=== PATIENT | female | born 1950 | race Caucasian/White ===

== ENCOUNTER 2016-11-20 11:04 | Emergency (ER) | payer MEDICARE ==
[~2016-11-20] VITALS: Ht 170.2 cm; Wt 66.2 kg
[~2016-11-20 11:04] MED LIST: ALPR1TAB3 PO; ATOR80TA41 PO; HYDR-3580 PO; LEVO125T3 PO; MULT-65 PO; OXYC1SOL5 PO; SERT100 PO; VITA10002 PO; WARF2.5T40 PO; WARF5TAB PO
[2016-11-20 11:08] VITALS: BP 126/69; PULSE 69; RESP 18; TEMP 98.1; O2SAT 95
[2016-11-20] MEDS ORDERED: JANT5TAB PO (11:22)
[2016-11-20] MEDS ORDERED: BENZ1CAP8 PO (11:22)
[2016-11-20] MEDS ORDERED: LEVO137T2 PO (11:22)
[2016-11-20] MEDS ORDERED: SERT-129 PO (11:22)
[2016-11-20] MEDS ORDERED: ATOR1TAB18 PO (11:22)
[2016-11-20] MEDS ORDERED: AZIT250T3 PO (11:22)
[2016-11-20] MEDS ORDERED: RESP: ALBUTEROL 2.5 MG/3 ML NEB (SCH) INH ONE (11:30)
[2016-11-20] MEDS ORDERED: predniSONE 20 MG TAB PO ONE (11:30)
--- NOTE | 2016-11-20 12:05 | PD ---
HPI Chief Complaint: ENT Complaint Time Seen by Provider: 12:02 Travel History International Travel<30 days: No Contact w/Intl Traveler<30days: No Traveled to known affect area: No History of Present Illness HPI 65-year-old female that presents to the ED for evaluation of cold-like symptoms since almost a week now. Per patient she was seen on Friday from urgent care and was diagnosed with strep throat and given a Z-Jorge as well as Tessalon Perles. Per patient she's been compliant with the medication she sometimes actually done with but she still doesn't feel any better. Per patient the cough is severe and cause a lot of chest discomfort with green mucus coming out. Per patient nothing seems to be apparently the cough. She denies any history of smoking. Denies any history of asthma. States having some shortness of breath with the cough. No abdominal pain. No headache. No neck pain. No fevers chills or sweats. Allergy to clindamycin, penicillin. PFSH Past Medical History Hx Anticoagulant Therapy: Yes (coumadin) Arthritis: Yes Asthma: No Atrial Fibrillation: Yes Autoimmune Disease: Yes (Fibromyalgia, polymyalgia rheumatica) Blood Disorders: No Anxiety: Yes Depression: No Heart Rhythm Problems: Yes (HX ) Cancer: No Cardiovascular Problems: Yes (PACEMAKER) High Cholesterol: Yes Chemotherapy: No Chest Pain: No Congestive Heart Failure: No COPD: No Cerebrovascular Accident: Yes Diabetes: No Diminished Hearing: No Endocrine: Yes Fibromyalgia: Yes Gastrointestinal Disorders: Yes GERD: Yes (HX) Glaucoma: No Genitourinary: Yes (KIDNEY STONES) Headaches: Yes Hepatitis: No Hiatal Hernia: Yes (hx--repair) Heparin Induced Thrombocytopen: No Hypertension: No Immune Disorder: Yes Implanted Vascular Access Dvce: Yes (PAIN PUMP) Kidney Stones: Yes Musculoskeletal: Yes Neurologic: Yes (r facial droop from stroke, r leg numb and weakness, foot drop , ) Psychiatric: Yes Reproductive: Yes Respiratory: No Integumentary: No Immunizations Current: Yes Migraines: No Myocardial Infarction: No Radiation Therapy: No Renal Failure: No Seizures: No Sickle Cell Disease: No Sleep Apnea: No Thyroid Disease: Yes (HYPO) Ulcer: No PNEUMOCCOCAL Vaccine (Year): 1 ?: Not Menopausal: Yes : 3 Para: 3 Past Surgical History Abdominal Surgery: Yes (umbilical hernia repair) AICD: Yes (Paruditronic) Appendectomy: No Arteriovenous Shunt: No Body Medical Devices: DILAUDID PAIN PUMP, METAL NECK ,LUMBAR AREAS Cardiac Surgery: Yes (pacemaker) Cholecystectomy: No Ear Surgery: No Endocrine Surgery: Yes (thyroidectomy) Eye Surgery: Yes (Lasik OU) Genitourinary Surgery: No Gynecologic Surgery: Yes (HYTERECTOMY) Hysterectomy: Yes Insulin Pump: No Joint Replacement: Yes (Lt. 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 DR BURNS 03/07/14 LRS, 11/20/16) Adhesives (Verified Adverse Reaction, Intermediate, SKIN TEARS, 11/20/16) Monosodium Glutamate (Verified Adverse Reaction, Intermediate, HEADACHES, 11/20/16) Reported Meds & Prescriptions Reported Meds & Active Scripts Active Reported Azithromycin 250 Mg Tab 250 Mg PO DIRECTED Take 2 tabs (500 mg) on day 1 then 1 tab daily x 4 days. Benzonatate 100 Mg Cap 100 Mg PO TID PRN Atorvastatin (Atorvastatin Calcium) 80 Mg Tab 80 Mg PO HS Jantoven (Warfarin) 5 Mg Tab 5 Mg PO DAILY Levothyroxine (Levothyroxine Sodium) 137 Mcg Tab 137 Mcg PO DAILY Sertraline (Sertraline HCl) 100 Mg Tab 100 Mg PO DAILY Review of Systems Except as stated in HPI: all other systems reviewed are Neg Physical Exam Narrative GENERAL: Well-nourished, well-developed patient in no apparent distress. SKIN: Warm and dry. HEAD: Atraumatic. Normocephalic. EYES: Pupils equal and round reactive to light and accommodation. No scleral icterus. No injection or drainage. ENT: No nasal bleeding or discharge. Mucous membranes pink and moist. TMs are clear with no sign of infection or perforation. No mastoid tenderness. Ear canals are intact bilaterally. No lymphadenopathy. Nostril mucosa is red and moist with clear mucus noted. No sinus tenderness to palpation noted. Tonsils are not enlarged or swollen. No ulvua Deviation. Tongue is midline. NECK: Trachea midline. No JVD. No meningeal signs noted CARDIOVASCULAR: Regular rate and rhythm. RESPIRATORY: No accessory muscle use. Rales heard in all lung gagnon.. Breath sounds equal bilaterally. Data Data Last Documented VS Vital Signs Date Time Temp Pulse Resp B/P Pulse Ox O2 Delivery O2 Flow Rate FiO2 11/20/16 11:08 98.1 69 18 126/69 95 Orders Chest, Single Ap (11/20/16 11:30) Prednisone (Deltasone) (11/20/16 11:30) Albuterol Neb (Albuterol Neb) (11/20/16 11:30) [facility] Medical Decision Making Medical Screen Exam Complete: Yes Emergency Medical Condition: Yes Medical Record Reviewed: Yes Interpretation(s) CXR negative for acute disease Differential Diagnosis Bronchitis versus reactive airway disease versus pneumonia URI versus otitis media versus otitis externa Narrative Course 65-year-old female that presents to the ED for evaluation of cold-like symptoms. Patient was properly examined and was found to have signs and symptoms consistent appears to be at this time bronchitis. Chest x-ray and albuterol as well as prednisone were given. Chest x-ray showed possible pneumonia. Patient was reassured. From history and physical this is likely bronchitis. Patient will be treated with albuterol inhaler, given prescription for Cipro and prednisone. Told to follow up closely with PCP. See ED worsening symptoms. Patient was told that symptoms can last a couple of weeks before she feels better. Take OTC meds as needed. Diagnosis Primary Impression: Bronchitis Patient Instructions: General Instructions Additional Instructions: Motrin and Tylenol for pain and fever. You can use [id number] antihistamine as well as well as Mucinex as needed for runny nose and congestion. Cough drops for cough as needed. Drink plenty of fluids. Follow-up with PCP. See ED for worsening symptoms. Med/Other Pt SpecificInfo: Prescription(s) given Disposition: 01 DISCHARGE HOME Condition: Stable Lul Fry Nov 20, 2016 12:05
[2016-11-20] MEDS ORDERED: ALBUAER3 INH (12:07)
[2016-11-20] MEDS ORDERED: PRED20 PO (12:07)
[2016-11-20] MEDS ORDERED: CIPR-9 PO (12:07)
--- NOTE | 2016-11-20 12:32 | RADHPO ---
EXAM DATE/TIME: 11/20/2016 12:00 [facility] COMPARISON: CHEST SINGLE AP, January 19, 2016, 23:51. INDICATIONS: Cough, short of breath. MEDICAL HISTORY: None. SURGICAL HISTORY: Pacemaker. ENCOUNTER: Initial ACUITY: 1 week PAIN SCORE: 0/10 LOCATION: Bilateral chest FINDINGS: Pacemaker is implanted in the right chest. Lungs are mildly hyperinflated but clear. There is no al veolar consolidation, pleural effusion or congestive failure. CONCLUSION: Pacer. Mild hyperinflation otherwise negative. Carlos Boogie MD FACR on November 20, 2016 at 12:25 Board Certified Radiologist. This report was verified electronically.
== END 2016-11-20 12:58 | disposition home or self-care (01) ==
LOC: PHEFT 11:04
DX: J40 Bronchitis, not specified as acute or chronic (principal); I48.91 Unspecified atrial fibrillation; E78.00 Pure hypercholesterolemia, unspecified; Z87.442 Personal history of urinary calculi; M79.7 Fibromyalgia; E03.9 Hypothyroidism, unspecified; Z79.01 Long term (current) use of anticoagulants; Z95.0 Presence of cardiac pacemaker
CPT/HCPCS: 71010; 94664; 99284; J7512; J7613

== ENCOUNTER 2016-12-28 18:41 | Emergency (ER) | payer MEDICARE ==
[~2016-12-28] VITALS: Ht 170.2 cm; Wt 66.0 kg
[~2016-12-28 18:41] MED LIST changes: +ALBUAER3 INH; -ALPR1TAB3 PO; +ATOR1TAB18 PO; -ATOR80TA41 PO; +AZIT250T3 PO; +BENZ1CAP8 PO; +CIPR-9 PO; -HYDR-3580 PO; +JANT5TAB PO; -LEVO125T3 PO; +LEVO137T2 PO; -MULT-65 PO; -OXYC1SOL5 PO; +PRED20 PO; +SERT-129 PO; -SERT100 PO; -VITA10002 PO; -WARF2.5T40 PO; -WARF5TAB PO
[2016-12-28 18:50] VITALS: BP 126/74; PULSE 80; RESP 16; TEMP 99.8; O2SAT 94
[2016-12-28] MEDS ORDERED: HYDR-3580 PO (19:07)
[2016-12-28] MEDS ORDERED: ALPR1TAB3 PO (19:07)
[2016-12-28] MEDS ORDERED: VITA10002 PO (19:07)
[2016-12-28] MEDS ORDERED: ZINC50TA PO (19:07)
[2016-12-28] MEDS ORDERED: MULT1TAB84 PO (19:07)
[2016-12-28 19:20] VITALS: PULSE 75; O2SAT 96
[2016-12-28] MEDS ORDERED: SODIUM CHLORIDE 0.9% FLUSH 5 ML FLUSH IVF PRN (19:45)
[2016-12-28 19:50] LABS: AUTOMATED NEUTROPHIL # 2.9 TH/MM3 (1.8-7.7); BASOPHIL # 0.1 TH/MM3 (0-0.2); BASOPHIL % 1.4 % (0.0-2.0); EOSINOPHIL % 0.7 % (0.0-4.0); HEMO FLAGS DIFF FINAL; LYMPH % 28.7 % (9.0-44.0); LYMPHOCYTE # 1.4 TH/MM3 (1.0-4.8); MEAN CELL VOLUME 88.1 FL (80.0-100.0); MEAN CORPUSCULAR HEMOGLOBIN 29.4 PG (27.0-34.0); MEAN CORPUSCULAR HGB CONC 33.3 % (32.0-36.0); MONO % 11.3 % (0.0-8.0); NEUT % 57.9 % (16.0-70.0); PLATELET COUNT 193 TH/MM3 (150-450); RED BLOOD COUNT 4.43 MIL/MM3 (4.00-5.30); RED CELL DISTRIBUTION WIDTH 12.2 % (11.6-17.2)
[2016-12-28 19:56] LABS: CHLORIDE 107 MEQ/L (98-107); POTASSIUM 3.4 MEQ/L (3.5-5.1); SODIUM (NA) 143 MEQ/L (136-145)
[2016-12-28 20:00] LABS: ANION GAP 8 MEQ/L (5-15); BICARBONATE 27.7 MEQ/L (21.0-32.0); BLOOD UREA NITROGEN 6 MG/DL (7-18); MAGNESIUM 2.2 MG/DL (1.5-2.5)
[2016-12-28 20:01] LABS: INTERNATIONAL NORMALIZED RATIO 3.6 RATIO; PROTHROMBIN TIME - PATIENT 42.1 SEC (9.8-11.6)
[2016-12-28 20:03] LABS: ALT (GPT) 33 U/L (10-53); AST (GOT) 35 U/L (15-37); GLOMERULAR FILTRATION RATE 98 ML/MIN (>89)
[2016-12-28 20:05] LABS: TOTAL BILIRUBIN ADULT 0.5 MG/DL (0.2-1.0)
[2016-12-28 20:05] LABS: BLOOD, URINE NEG (NEG); GLUCOSE,URINE NEG (NEG); KETONE, URINE NEG (NEG); NITRITE,URINE NEG (NEG)
[2016-12-28 20:06] LABS: ALKALINE PHOSPHATASE 101 U/L (45-117)
[2016-12-28 20:07] LABS: URINE COLOR YELLOW (YELLW/STRAW)
[2016-12-28 20:10] LABS: COMMENT (UR) CULT NOT INDICATED; COMMENT2 (UR) MUCOUS PRESENT; CULTURE IF INDICATED CULT NOT INDICATED; RBC, URINE 0-2 /hpf (0-3); SQUAMOUS EPITHELIAL CELL URINE 0-5 /hpf (0-5); WBC, URINE 0-2 /hpf (0-5)
--- NOTE | 2016-12-28 20:16 | RADHPO ---
EXAM DATE/TIME: 12/28/2016 19:51 [facility] COMPARISON: No previous studies available for comparison. INDICATIONS : Fever and cough for two days. MEDICAL HISTORY : None. SURGICAL HISTORY : Pacemaker. ENCOUNTER: Initial ACUITY: 2 days PAIN SCORE: 0/10 LOCATION: Bilateral chest FINDINGS: Heart is enlarged. Minimal basilar atelectasis. No effusion or pneumothorax. Pacer leads overlie righ t atrium and right ventricle. CONCLUSION: 1. Cardiomegaly. Minimal basilar atelectasis. No effusion or pneumothorax. Payam Quezada MD on December 28, 2016 at 20:10 Board Certified Radiologist. This report was verified electronically.
[2016-12-28 20:45] VITALS: BP 133/72; PULSE 61; RESP 18; TEMP 99.1; O2SAT 97
--- NOTE | 2016-12-28 21:07 | RADHPO ---
EXAM DATE/TIME: 12/28/2016 20:06 [facility] COMPARISON: CT BRAIN W/O CONTRAST, January 20, 2016, 11:12. INDICATIONS : Headache. RADIATION DOSE: 62.67 CTDIvol (mGy) MEDICAL HISTORY : Stroke. Hypertension. SURGICAL HISTORY : None. ENCOUNTER: Initial ACUITY: 1 day PAIN SCALE: 7/10 LOCATION: cranial TECHNIQUE: Multiple contiguous axial images were obtained of the head. Using automated exposure control and adj ustment of the mA and/or kV according to patient size, radiation dose was kept as low as reasonably a chievable to obtain optimal diagnostic quality images. FINDINGS: CEREBRUM: The ventricles are normal for age. No evidence of midline shift, mass lesion, hemorrhage or acute in farction. No extra-axial fluid collections are seen. POSTERIOR FOSSA: The cerebellum and brainstem are intact. The 4th ventricle is midline. The cerebellopontine angle i s unremarkable. EXTRACRANIAL: The visualized portion of the orbits is intact. SKULL: The calvaria is intact. No evidence of skull fracture. CONCLUSION: Normal examination for a patient of this age. No significant change has occurred. Payam Quezada MD on December 28, 2016 at 21:03 Board Certified Radiologist. This report was verified electronically.
[2016-12-28 22:35] VITALS: BP 130/72; PULSE 68; RESP 18; O2SAT 97
[2016-12-28] MEDS ORDERED: ALBU6.7H INH (22:35)
[2016-12-28] MEDS ORDERED: CEFT500T3 PO (22:35)
--- NOTE | 2016-12-28 22:36 | PD ---
HPI Chief Complaint: Cold / Flu Symptoms Time Seen by Provider: 19:33 Travel History International Travel<30 days: No Contact w/Intl Traveler<30days: No Traveled to known affect area: No History of Present Illness HPI 66-year-old female presents to the emergency department by private transportation for complaint of myalgias arthralgias headache nasal/sinus congestion sore throat cough and not feeling well for several days. Patient states she is exposed to family members with children that have recently been ill. Patient denies having the flu. Patient reports flu vaccine current. Patient has extensive past medical history that includes atrial fibrillation, warfarin therapy, CVA, kidney stones, pacemaker, anxiety depression, fibromyalgia, polymyalgia rheumatica, high cholesterol, hypertension, headaches , GERD, hypothyroidism, back surgery and pain pump. Patient does not report any neck stiffness or back pain. No dysuria frequency or urgency. Nausea without vomiting or diarrhea. No skin rash or joint pain or swelling. No recent fall or injury. Headache is not sudden onset thunderclap or worst ever. Patient does have history of headaches. Patient has history of recurrent sinus infections and rhinosinusitis. Patient is followed by a nose and throat specialist. Patient has finished a course of azithromycin and a 18 day course of Bactrim. No yellow green sinus drainage. Cough nonproductive of yellow- green sputum. No hemoptysis. Patient is unable to identify exacerbating or alleviating factors. Patient rates overall discomfort/pain 10 over 10 in intensity. PFSH Past Medical History Narrative Medical atrial fibrillation, warfarin therapy, CVA, kidney stones, pacemaker, anxiety depression, fibromyalgia, polymyalgia rheumatica, high cholesterol, hypertension , headaches, GERD, hypothyroidism, back surgery, pain pump; no tobacco use; nursing notes reviewed Hx Anticoagulant Therapy: Yes (coumadin) Arthritis: Yes Asthma: No Atrial Fibrillation: Yes Autoimmune Disease: Yes (Fibromyalgia, polymyalgia rheumatica) Blood Disorders: No Anxiety: Yes Depression: Yes Heart Rhythm Problems: Yes (HX ) Cancer: No Cardiac Catheterization: Yes Cardiovascular Problems: Yes (PACEMAKER) High Cholesterol: Yes Chemotherapy: No Chest Pain: No Congestive Heart Failure: No COPD: No Cerebrovascular Accident: Yes Diabetes: No Diminished Hearing: No Endocrine: Yes Fibromyalgia: Yes Gastrointestinal Disorders: Yes GERD: Yes (HX) Glaucoma: No Genitourinary: Yes (KIDNEY STONES) Headaches: Yes Hepatitis: No Hiatal Hernia: Yes (hx--repair) Heparin Induced Thrombocytopen: No Hypertension: No Immune Disorder: Yes Implanted Vascular Access Dvce: Yes (PAIN PUMP) Kidney Stones: Yes Musculoskeletal: Yes Neurologic: Yes (r facial droop from stroke, r leg numb and weakness, foot drop , ) Psychiatric: Yes Reproductive: Yes Respiratory: No Integumentary: No Immunizations Current: Yes Migraines: No Myocardial Infarction: No Radiation Therapy: No Renal Failure: No Seizures: No Sickle Cell Disease: No Sleep Apnea: No Thyroid Disease: Yes (HYPO) Ulcer: No PNEUMOCCOCAL Vaccine (Year): 1 ?: Not Menopausal: Yes : 3 Para: 3 Past Surgical History Abdominal Surgery: Yes (umbilical hernia repair) AICD: Yes (medtronic (REMOVED)) Appendectomy: No Arteriovenous Shunt: No Body Medical Devices: DILAUDID PAIN PUMP, METAL NECK ,LUMBAR AREAS Cardiac Surgery: Yes (pacemaker) Cholecystectomy: No Ear Surgery: No Endocrine Surgery: Yes (thyroidectomy) Eye Surgery: Yes (Lasik OU) Genitourinary Surgery: No Gynecologic Surgery: Yes (HYTERECTOMY) Hysterectomy: Yes Insulin Pump: No Joint Replacement: Yes (Lt. 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 Proventil Hfa 6.7 GM Inh (Albuterol Sulfate) 90 Mcg/Act Aer 2 Puff INH Q4-6H PRN Proair Hfa 8.5 GM Inh (Albuterol Sulfate) 90 Mcg/Act Aer 2 Puff INH Q4-6H PRN 108 mcg/actuation Prednisone 20 Mg Tab 20 Mg PO BID Reported Zinc 50 Mg Tab 50 Mg PO DAILY Vitamin B-12 (Cyanocobalamin) 1,000 Mcg Tab 1,000 Mcg PO DAILY Multivitamin Adults (Multiple Vitamins W/ Minerals) 1 Tab 1 Tab PO DAILY Hydrocodone-Acetaminophen 7.5-325 mg Tab 1 Tab PO BID PRN Alprazolam 1 Mg Tab 1 Mg PO HS PRN Atorvastatin (Atorvastatin Calcium) 80 Mg Tab 80 Mg PO HS Jantoven (Warfarin) 5 Mg Tab 5 Mg PO HS Levothyroxine (Levothyroxine Sodium) 137 Mcg Tab 137 Mcg PO DAILY Sertraline (Sertraline HCl) 100 Mg Tab 100 Mg PO DAILY Review of Systems Except as stated in HPI: all other systems reviewed are Neg General / Constitutional: Positive: Fever, Chills HENT: Positive: Headaches, Sore Throat, Congestion Cardiovascular: No: Chest Pain or Discomfort Respiratory: Positive: Cough, No: Shortness of Breath, Wheezing Gastrointestinal: Positive: Nausea, No: Vomiting, Abdominal Pain Genitourinary: No: Dysuria Musculoskeletal: Positive: Myalgias, Arthralgias Skin: No Rash Neurologic: No: Weakness Psychiatric: No: Anxiety Endocrine: No: Heat Intolerance Hematologic/Lymphatic: No: Easy Bruising Physical Exam Narrative GENERAL: Well-developed well-nourished female in no acute distress no respiratory distress SKIN: Warm and dry. HEAD: Atraumatic. Normocephalic. EYES: Pupils equal and round. No scleral icterus. No injection or drainage. Extraocular muscles intact. ENT: No nasal bleeding or discharge. Mucous membranes pink and moist. Airway is patent. Tympanic membranes no redness dullness loss of landmarks or perforation. NECK: Trachea midline. No JVD. Supple no meningismus no nuchal rigidity. CARDIOVASCULAR: Regular rate and rhythm. RESPIRATORY: No accessory muscle use. Clear to auscultation. Breath sounds equal bilaterally. GASTROINTESTINAL: Abdomen soft, non-tender, nondistended. Hepatic and splenic margins not palpable. MUSCULOSKELETAL: Extremities without clubbing, cyanosis, or edema. No obvious deformities. NEUROLOGICAL: Awake and alert. No obvious cranial nerve deficits. Motor grossly within normal limits. Five out of 5 muscle strength in the arms and legs. Normal speech. PSYCHIATRIC: Appropriate mood and affect; insight and judgment normal. Data Data Last Documented VS Vital Signs Date Time Temp Pulse Resp B/P Pulse Ox O2 Delivery O2 Flow Rate FiO2 12/28/16 22:35 68 18 130/72 97 Room Air 12/28/16 20:45 99.1 Orders Electrocardiogram (12/28/16 19:33) Complete Blood Count With Diff (12/28/16 19:33) Comprehensive Metabolic Panel (12/28/16 19:33) Influenzae A/B Antigen (12/28/16 19:33) Chest, Single Ap (12/28/16 19:33) Ecg Monitoring (12/28/16 19:33) Iv Access Insert/Monitor (12/28/16 19:33) Oximetry (12/28/16 19:33) Sodium Chloride 0.9% Flush (Ns Flush) (12/28/16 19:45) Ct Brain W/O Iv Contrast(Rout) (12/28/16 ) Prothrombin Time / Inr (Pt) (12/28/16 19:33) Lactic Acid (12/28/16 19:33) Magnesium (Mg) (12/28/16 19:33) Urinalysis - C+S If Indicated (12/28/16 19:33) Troponin I (12/28/16 19:25) Cefuroxime (Ceftin) (12/28/16 22:45) Labs Laboratory Tests Test 12/28/16 12/28/16 19:25 19:50 White Blood Count 5.0 TH/MM3 Red Blood Count 4.43 MIL/MM3 Hemoglobin 13.0 GM/DL Hematocrit 39.0 % Mean Corpuscular Volume 88.1 FL Mean Corpuscular Hemoglobin 29.4 PG Mean Corpuscular Hemoglobin 33.3 % Concent Red Cell Distribution Width 12.2 % Platelet Count 193 TH/MM3 Mean Platelet Volume 8.3 FL Neutrophils (%) (Auto) 57.9 % Lymphocytes (%) (Auto) 28.7 % Monocytes (%) (Auto) 11.3 % Eosinophils (%) (Auto) 0.7 % Basophils (%) (Auto) 1.4 % Neutrophils # (Auto) 2.9 TH/MM3 Lymphocytes # (Auto) 1.4 TH/MM3 Monocytes # (Auto) 0.6 TH/MM3 Eosinophils # (Auto) 0.0 TH/MM3 Basophils # (Auto) 0.1 TH/MM3 CBC Comment DIFF FINAL Differential Comment Prothrombin Time 42.1 SEC Prothromb Time International 3.6 RATIO Ratio Sodium Level 143 MEQ/L Potassium Level 3.4 MEQ/L Chloride Level 107 MEQ/L Carbon Dioxide Level 27.7 MEQ/L Anion Gap 8 MEQ/L Blood Urea Nitrogen 6 MG/DL Creatinine 0.61 MG/DL Estimat Glomerular Filtration 98 ML/MIN Rate Random Glucose 87 MG/DL Lactic Acid Level 0.7 mmol/L Calcium Level 8.1 MG/DL Magnesium Level 2.2 MG/DL Total Bilirubin 0.5 MG/DL Aspartate Amino Transf 35 U/L (AST/SGOT) Alanine Aminotransferase 33 U/L (ALT/SGPT) Alkaline Phosphatase 101 U/L Troponin I LESS THAN 0.02 NG/ML Total Protein 6.8 GM/DL Albumin 3.5 GM/DL Urine Color YELLOW Urine Turbidity CLEAR Urine pH 6.0 Urine Specific [place] 1.017 Urine Protein NEG mg/dL Urine Glucose (UA) NEG mg/dL Urine Ketones NEG mg/dL Urine Occult Blood NEG Urine Nitrite NEG Urine Bilirubin NEG Urine Leukocyte Esterase NEG Urine RBC 0-2 /hpf Urine WBC 0-2 /hpf Urine Squamous Epithelial 0-5 /hpf Cells Urine Bacteria NONE /hpf Microscopic Urinalysis Comment CULT NOT INDICATED MDM Medical Decision Making Medical Screen Exam Complete: Yes Emergency Medical Condition: Yes Medical Record Reviewed: Yes Interpretation(s) Lactic acid: 0.7, not elevated Last Impressions Chest X-Ray 12/28/16 1933 Signed Impressions: Service Date/Time: Wednesday, December 28, 2016 19:51 - CONCLUSION: 1. Cardiomegaly. Minimal basilar atelectasis. No effusion or pneumothorax. Payam Quezada MD Head CT 12/28/16 0000 Signed Impressions: Service Date/Time: Wednesday, December 28, 2016 20:06 - CONCLUSION: Normal examination for a patient of this age. No significant change has occurred. Payam Quezada MD Vital Signs Date Time Temp Pulse Resp B/P Pulse Ox O2 Delivery O2 Flow Rate FiO2 12/28/16 20:45 99.1 61 18 133/72 97 Room Air 12/28/16 19:20 18 96 Room Air 12/28/16 19:20 75 96 Room Air 12/28/16 18:50 99.8 80 16 126/74 94 CBC & BMP Diagram 12/28/16 19:25 Influenza A/B antigen: Negative Differential Diagnosis Viral syndrome, influenza, sinusitis, pharyngitis, bronchitis, pneumonia, UTI Narrative Course IV access obtained specimens collected and sent for resulting imaging studies ordered Flu test negative Chest x-ray no lobar infiltrate or pneumonia CT brain noncontrast reveals no acute abnormality Lab values grossly normal range Patient feeling well after labs resulted and resting in the emergency department given first dose of oral antibiotic in the emergency department Patient stable for outpatient management Diagnosis Primary Impression: Acute sinusitis Additional Impression: Bronchitis Referrals: Primary Care Physician call for appointment Patient Instructions: General Instructions Additional Instructions: Take acetaminophen/Tylenol every 4 hours as needed for fever 100.4F or greater or for minor pain Complete course of antibiotic as prescribed Follow-up with your primary care provider call office in a.m. to schedule follow -up appointment Return to the emergency department for any concerns or change in condition May use as tolerated for up to 2-3 days Afrin nasal decongestant spray 1 spray per nostril up to twice a day for nasal congestion avoid overuse or for use longer than 3 days May use [id number] Flonase or Nasacort steroid spray per package directions Increase fluid hydration Med/Other Pt SpecificInfo: Prescription(s) given Scripts Azithromycin (Zithromax Z-Jorge)250 Mg [id number] Mg PO DIRECTED #1 DSPK Ref 0 500 MG (2 tabs) day 1, then 1 tab days 2-5. Prov:Sandra George MD 12/28/16 Albuterol 6.7 GM Inh (Proventil Hfa 6.7 GM Inh)90 Mcg/Act Aer2 Puff INH Q4-6H PRN (SHORTNESS OF BREATH) #1 INHALER Ref 0 Prov:Sandra George MD 12/28/16 Disposition: 01 DISCHARGE HOME Condition: Stable Sandra George MD Dec 28, 2016 22:36
[2016-12-28] MEDS ORDERED: CEFUROXIME AXETIL 500 MG TAB PO ONE (22:45)
[2016-12-28] MEDS ORDERED: ZITHTAB PO (22:51)
--- NOTE | 2016-12-29 14:39 | EKG ---
Date Performed: 12/28/2016 Time Performed: 19:42:02 PTAGE: 66 years EKG: Sinus rhythm vs possible atrial pacing Leftward axis Lateral ST changes are nonspecific Compared to previous trac ing, there are possible atrial pacing spikes seen. Though Clinical correlation is recommended. Likely no significant change from prior Abnormal ECG PREVIOUS TRACING : 01/20/2016 00.05 DOCTOR: Demetrius Julian Interpretating Date/Time 12/29/2016 14:38:04
== END 2016-12-28 23:00 | disposition home or self-care (01) ==
LOC: PHED 18:41
DX: J01.90 Acute sinusitis, unspecified (principal); J40 Bronchitis, not specified as acute or chronic; R94.31 Abnormal electrocardiogram [ECG] [EKG]; M25.50 Pain in unspecified joint; I48.91 Unspecified atrial fibrillation; M79.7 Fibromyalgia; M35.3 Polymyalgia rheumatica; I10 Essential (primary) hypertension; E78.00 Pure hypercholesterolemia, unspecified; Z79.01 Long term (current) use of anticoagulants; Z86.73 Personal history of transient ischemic attack (TIA), and cerebral infarction without residual deficits; Z87.442 Personal history of urinary calculi; Z95.0 Presence of cardiac pacemaker; Z86.59 Personal history of other mental and behavioral disorders; Z87.19 Personal history of other diseases of the digestive system
CPT/HCPCS: 70450; 71010; 80053; 81001; 83605; 83735; 84484; 85025; 85610; 87804; 93005

== ENCOUNTER 2017-01-04 09:27 | Emergency (ER) | payer MEDICARE ==
[~2017-01-04] VITALS: Ht 167.6 cm; Wt 66.0 kg
[~2017-01-04 09:27] MED LIST changes: +ALBU6.7H INH; +ALPR1TAB3 PO; -AZIT250T3 PO; -BENZ1CAP8 PO; -CIPR-9 PO; +HYDR-3580 PO; +MULT1TAB84 PO; +VITA10002 PO; +ZINC50TA PO; +ZITHTAB PO
[2017-01-04 09:30] VITALS: BP 141/75; PULSE 79; RESP 18; TEMP 97.7; O2SAT 94; O2SAT 98
--- NOTE | 2017-01-04 09:36 | PD ---
HPI Chief Complaint: Cold / Flu Symptoms Time Seen by Provider: 09:32 Travel History International Travel<30 days: No Contact w/Intl Traveler<30days: No History of Present Illness HPI 66-year-old female states she has been struggling with a intermittent productive cough and nasal congestion over the past 2 months. She denies any fever or other significant complaints other than sinus pressure. She states Dr. Orourke her ENT physician put her on a stronger antibiotic for a bacterial infection for 14 days and scheduled follow-up for her at the end of this month on the . She states that she went to [facility] and was given a Z-Jorge and when she stops that she felt like her symptoms came back. She states she is sick of being sick with this cough and congestion and wanted to get checked out again. She states Dr. Barboza manages her Coumadin and her last INR was yesterday at 2.1 so they are going to check it again on Friday as they were concerned that the antibiotics she was on May alter it. She states that they did not have her adjust her medication. She states that Dr. Ayala is her primary care physician but she is only seeing them a couple times after switching insurances. She states that she has no other complaints. PFSH Past Medical History Narrative Medical atrial fibrillation on warfarin, CVA, kidney stones, anxiety depression, fibromyalgia, polymyalgia rheumatica, high cholesterol, hypertension, headaches , GERD, hypothyroidism Hx Anticoagulant Therapy: Yes (coumadin) Arthritis: Yes Asthma: No Atrial Fibrillation: Yes Autoimmune Disease: Yes (Fibromyalgia, polymyalgia rheumatica) Blood Disorders: No Anxiety: Yes Depression: Yes Heart Rhythm Problems: Yes (HX ) Cancer: No Cardiac Catheterization: Yes Cardiovascular Problems: Yes (PACEMAKER) High Cholesterol: Yes Chemotherapy: No Chest Pain: No Congestive Heart Failure: No COPD: No Cerebrovascular Accident: Yes Diabetes: No Diminished Hearing: No Endocrine: Yes Fibromyalgia: Yes Gastrointestinal Disorders: Yes GERD: Yes (HX) Glaucoma: No Genitourinary: Yes (KIDNEY STONES) Headaches: Yes Hepatitis: No Hiatal Hernia: Yes (hx--repair) Heparin Induced Thrombocytopen: No Hypertension: No Immune Disorder: Yes Implanted Vascular Access Dvce: Yes (PAIN PUMP) Kidney Stones: Yes Musculoskeletal: Yes Neurologic: Yes (r facial droop from stroke, r leg numb and weakness, foot drop , ) Psychiatric: Yes Reproductive: Yes Respiratory: No Integumentary: No Immunizations Current: Yes Migraines: No Myocardial Infarction: No Radiation Therapy: No Renal Failure: No Seizures: No Sickle Cell Disease: No Sleep Apnea: No Thyroid Disease: Yes (HYPO) Ulcer: No PNEUMOCCOCAL Vaccine (Year): 1 Menopausal: Yes : 3 Para: 3 Past Surgical History Narrative Surgical reviewed Abdominal Surgery: Yes (umbilical hernia repair) AICD: Yes (medtronic (REMOVED)) Appendectomy: No Arteriovenous Shunt: No Body Medical Devices: DILAUDID PAIN PUMP, METAL NECK ,LUMBAR AREAS Cholecystectomy: No Ear Surgery: No Endocrine Surgery: Yes (thyroidectomy) Eye Surgery: Yes (Lasik OU) Genitourinary Surgery: No Hysterectomy: Yes Insulin Pump: No Joint Replacement: Yes (Lt. 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 Zithromax Z-Jorge (Azithromycin) 250 Mg Dspk 250 Mg PO DIRECTED 500 MG (2 tabs) day 1, then 1 tab days 2-5. Proventil Hfa 6.7 GM Inh (Albuterol Sulfate) 90 Mcg/Act Aer 2 Puff INH Q4-6H PRN Proair Hfa 8.5 GM Inh (Albuterol Sulfate) 90 Mcg/Act Aer 2 Puff INH Q4-6H PRN 108 mcg/actuation Prednisone 20 Mg Tab 20 Mg PO BID Reported Zinc 50 Mg Tab 50 Mg PO DAILY Vitamin B-12 (Cyanocobalamin) 1,000 Mcg Tab 1,000 Mcg PO DAILY Multivitamin Adults (Multiple Vitamins W/ Minerals) 1 Tab 1 Tab PO DAILY Hydrocodone-Acetaminophen 7.5-325 mg Tab 1 Tab PO BID PRN Alprazolam 1 Mg Tab 1 Mg PO HS PRN Atorvastatin (Atorvastatin Calcium) 80 Mg Tab 80 Mg PO HS Jantoven (Warfarin) 5 Mg Tab 5 Mg PO HS Levothyroxine (Levothyroxine Sodium) 137 Mcg Tab 137 Mcg PO DAILY Sertraline (Sertraline HCl) 100 Mg Tab 100 Mg PO DAILY Review of Systems Except as stated in HPI: all other systems reviewed are Neg Physical Exam Narrative GENERAL: Well-nourished, well-developed patient. Well-appearing SKIN: Warm and dry. HEAD: Normocephalic and atraumatic. EYES: No injection or drainage. Pupils equal ENT: No nasal drainage noted. Bilateral TMs clear, posterior oropharynx without exudate or erythema NECK: Supple, trachea midline. No meningeal signs CARDIOVASCULAR: Regular rate and rhythm RESPIRATORY: Good aeration with faint expiratory wheezing bilaterally. No accessory muscle use. EXTREMITIES: No edema. NEUROLOGICAL: Awake and alert. Motor and sensory grossly within normal limits. Normal speech. Data Data Last Documented VS Vital Signs Date Time Temp Pulse Resp B/P Pulse Ox O2 Delivery O2 Flow Rate FiO2 01/04/17 10:45 97 21 01/04/17 09:30 20 Room Air 01/04/17 09:30 97.7 79 141/75 Orders Influenzae A/B Antigen (01/04/17 09:44) Chest, Pa & Lat (01/04/17 ) Ct Brain W/O Iv Contrast(Rout) (01/04/17 ) Ecg Monitoring (01/04/17 09:44) Oximetry (01/04/17 09:44) Albuterol Neb (Albuterol Neb) (01/04/17 09:45) MDM Medical Decision Making Medical Screen Exam Complete: Yes Emergency Medical Condition: Yes Medical Record Reviewed: Yes ([facility] confiremd, recent er visits for bronchitis and sinusitis noted, most recent on December 28 with discharge with azithromycin and albuterol) Interpretation(s) Last [address] 01/04/17 0000 Signed Impressions: Service Date/Time: Wednesday, January 04, 2017 10:01 - CONCLUSION: Normal noncontrast CT appearance of the brain. Maxillary sinus disease. Kris Fraser MD Chest X-Ray 01/04/17 0000 Signed Impressions: Service Date/Time: Wednesday, January 04, 2017 10:05 - CONCLUSION: No evidence of acute cardiopulmonary disease. Kris Fraser MD Influenza is negative Differential Diagnosis Sinusitis, pharyngitis, pneumonia, URI, seasonal allergies Narrative Course Will check influenza, chest x-ray, CT brain and dose with albuterol and reevaluate. Patient agrees to testing given recent blood work yesterday. CT brain without bleed, mild sinus disease, influenza is negative, chest x-ray is negative, patient feels better after albuterol, patient's wheezing has cleared. 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 Patient knows that follow up is incumbent on them and to return to the emergency room immediately if new or worsening symptoms develop. Patient given strict return precautions, vitals reviewed and are normal, agrees to further workup as an outpatient. Physician Communication Physician Communication dr barboza states take 5mg tonight and alternate 2.5 for one week and then will recheck, ok with any antibiotic Diagnosis Primary Impression: Bronchitis Patient Instructions: General Instructions Additional Instructions: follow with primary friday, return as needed, tylenol as needed, take 5 mg of Coumadin tonight and then alternate 2-1/2 mg and 5 mg for the next week with repeat INR through Dr. Barboza Med/Other Pt SpecificInfo: Prescription(s) given Scripts Azithromycin (Zithromax Z-Jorge)250 Mg [id number] Mg PO DIRECTED #1 DSPK 500 MG (2 tabs) day 1, then 1 tab days 2-5. Prov:Ashanti Luong MD 01/04/17 Disposition: DISCHARGE HOME Condition: Stable Ashanti Luong MD Jan 04, 2017 09:36
[2017-01-04] MEDS ORDERED: RESP: ALBUTEROL 2.5 MG/3 ML NEB (SCH) INH ONE (09:45)
--- NOTE | 2017-01-04 10:26 | RADRPT ---
EXAM DATE/TIME: 01/04/2017 10:01 [facility] COMPARISON: CT BRAIN W/O CONTRAST, December 28, 2016, 20:06. INDICATIONS : Cephalgia. RADIATION DOSE: 34.46 CTDIvol (mGy) MEDICAL HISTORY : Deep venous thrombosis. Cardiovascular disease SURGICAL HISTORY : Pacemaker. Spine. ENCOUNTER: Initial ACUITY: 1 day PAIN SCALE: 5/10 LOCATION: cranial TECHNIQUE: Multiple contiguous axial images were obtained of the head. Using automated exposure control and adj ustment of the mA and/or kV according to patient size, radiation dose was kept as low as reasonably a chievable to obtain optimal diagnostic quality images. FINDINGS: CEREBRUM: The ventricles are normal for age. No evidence of midline shift, mass lesion, hemorrhage or acute in farction. No extra-axial fluid collections are seen. POSTERIOR FOSSA: The cerebellum and brainstem are intact. The 4th ventricle is midline. The cerebellopontine angle i s unremarkable. EXTRACRANIAL: Small fluid levels are seen in both maxillary air cells. SKULL: The calvaria is intact. No evidence of skull fracture. CONCLUSION: Normal noncontrast CT appearance of the brain. Maxillary sinus disease. Kris Fraser MD on January 04, 2017 at 10:24 Board Certified Radiologist. This report was verified electronically.
--- NOTE | 2017-01-04 10:27 | RADRPT ---
EXAM DATE/TIME: 01/04/2017 10:05 [facility] COMPARISON: No previous studies available for comparison. INDICATIONS : Cough MEDICAL HISTORY : Hypertension. Stroke. SURGICAL HISTORY : Pacemaker. ENCOUNTER: Initial ACUITY: 2 months PAIN SCORE: 0/10 LOCATION: Bilateral chest FINDINGS: No infiltrate, effusion or pneumothorax. Heart size stable, within normal limits. Mildly tortuous tho racic aorta again noted. There is a right subclavian transvenous cardiac pacer with 2 leads again not ed. CONCLUSION: No evidence of acute cardiopulmonary disease. Kris Fraser MD on January 04, 2017 at 10:25 Board Certified Radiologist. This report was verified electronically.
[2017-01-04 10:45] VITALS: O2SAT 97
[2017-01-04] MEDS ORDERED: ZITHTAB PO ×2 (11:11→11:13)
== END 2017-01-04 11:26 | disposition home or self-care (01) ==
LOC: NEPA 09:27
DX: J40 Bronchitis, not specified as acute or chronic (principal); M35.3 Polymyalgia rheumatica; M79.7 Fibromyalgia; K21.9 Gastro-esophageal reflux disease without esophagitis; I48.91 Unspecified atrial fibrillation; I10 Essential (primary) hypertension; E78.00 Pure hypercholesterolemia, unspecified; E03.9 Hypothyroidism, unspecified; E07.9 Disorder of thyroid, unspecified; Z79.01 Long term (current) use of anticoagulants; Z86.73 Personal history of transient ischemic attack (TIA), and cerebral infarction without residual deficits; Z87.442 Personal history of urinary calculi; Z95.0 Presence of cardiac pacemaker
CPT/HCPCS: 70450; 71020; 87804; 94664; 99284; J7613

== ENCOUNTER 2018-04-04 23:43 | Emergency (ER) | payer MEDICARE ==
[~2018-04-04] VITALS: Ht 170.2 cm; Wt 75.7 kg
[~2018-04-04 23:43] MED LIST changes: -ATOR1TAB18 PO; +ATOR80TA45 PO
[2018-04-04 23:48] VITALS: BP 143/63; PULSE 62; RESP 20; TEMP 98.8; O2SAT 98
[2018-04-05] MEDS ORDERED: MULTTAB67 PO (00:20)
[2018-04-05] MEDS ORDERED: WARF-18 PO (00:20)
[2018-04-05] MEDS ORDERED: HYDR-3583 PO (00:20)
[2018-04-05] MEDS ORDERED: WARF-23 PO (00:20)
[2018-04-05 00:59] LABS: BILIRUBIN, URINE NEG (NEG); BLOOD, URINE NEG (NEG); GLUCOSE,URINE NEG (NEG); KETONE, URINE NEG (NEG); NITRITE,URINE NEG (NEG); PH, URINE 5.5 (5.0-8.5); URINE COLOR YELLOW (YELLW/STRAW); URINE LEUKOCYTE ESTERASE TRACE (NEG)
[2018-04-05 01:01] LABS: SQUAMOUS EPITHELIAL CELL URINE 0-5 /hpf (0-5); WBC, URINE 0-2 /hpf (0-5)
--- NOTE | 2018-04-05 02:32 | RADRPT ---
EXAM DATE/TIME: 04/05/2018 00:51 [facility] COMPARISON: No previous studies available for comparison. INDICATIONS : Swelling. MEDICAL HISTORY : Hypertension. Stroke. SURGICAL HISTORY : Total knee replacement, left. Pacemaker. Lumbar fusion. Cervical fusion. ENCOUNTER: Initial ACUITY: 2 days PAIN SCORE: 0/10 LOCATION: Left ankle FINDINGS: Three view exam was performed of the right ankle. The bony structures are in normal alignment. No e vidence of fracture, dislocation. The ankle mortise is intact. No radiopaque foreign bodies are seen . Bony mineralization is normal. CONCLUSION: 1. Soft tissue swelling of the right ankle. No acute bony abnormality. Payam Quezada MD on April 05, 2018 at 1:24 Board Certified Radiologist. This report was verified electronically.
[2018-04-05 02:42] LABS: AUTOMATED NEUTROPHIL # 2.1 TH/MM3 (1.8-7.7); BASOPHIL % 0.8 % (0.0-2.0); EOSINOPHIL # 0.2 TH/MM3 (0-0.4); EOSINOPHIL % 3.9 % (0.0-4.0); HEMOGLOBIN 10.4 GM/DL (11.6-15.3); LYMPH % 37.9 % (9.0-44.0); LYMPHOCYTE # 1.8 TH/MM3 (1.0-4.8); MEAN CELL VOLUME 80.6 FL (80.0-100.0); MEAN CORPUSCULAR HEMOGLOBIN 27.8 PG (27.0-34.0); MEAN CORPUSCULAR HGB CONC 34.5 % (32.0-36.0); MEAN PLATELET VOLUME 8.8 FL (7.0-11.0); MONO % 12.1 % (0.0-8.0); MONOCYTE # 0.6 TH/MM3 (0-0.9); NEUT % 45.3 % (16.0-70.0); PLATELET COUNT 203 TH/MM3 (150-450); RED BLOOD COUNT 3.73 MIL/MM3 (4.00-5.30); WHITE BLOOD COUNT 4.7 TH/MM3 (4.0-11.0)
[2018-04-05 02:46] LABS: BICARBONATE 29.1 MEQ/L (21.0-32.0); CALCIUM 8.5 MG/DL (8.5-10.1); CREATININE 0.67 MG/DL (0.50-1.00)
[2018-04-05 02:56] LABS: INTERNATIONAL NORMALIZED RATIO 1.5 RATIO; PROTHROMBIN TIME - PATIENT 14.8 SEC (9.8-11.6)
[2018-04-05] MEDS ORDERED: SULFAMETHOXAZOLE-TRIMETHOPRIM DS 800-160 MG TAB PO ONE (03:30)
--- NOTE | 2018-04-05 03:35 | PD ---
HPI Chief Complaint: Injury Time Seen by Provider: 00:38 Travel History International Travel<30 days: No Contact w/Intl Traveler<30days: No Traveled to known affect area: No History of Present Illness HPI 67-year-old female has noted irritation to the right ankle and medial lower leg and dorsum of right foot over the past 1-2 days no fever chills but has noted warmth to the medial aspect. Patient also denies any known injury. No bruising. 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 Patient also has history of previous CVA with mild residual right-sided weakness. PFSH Past Medical History Narrative Medical CVA CAD hypothyroidism anxiety depression dyslipidemia hypertension no tobacco use medical record and nursing notes reviewed Hx Anticoagulant Therapy: Yes (COUMADIN) Anemia: Yes Arthritis: Yes Asthma: No Atrial Fibrillation: Yes Autoimmune Disease: Yes (polymyalgia rheumatica) Blood Disorders: No Anxiety: Yes Depression: Yes Heart Rhythm Problems: Yes Cancer: No Cardiac Catheterization: Yes Cardiovascular Problems: Yes (PACEMAKER) High Cholesterol: Yes Chemotherapy: No Chest Pain: No Congestive Heart Failure: No COPD: No Cerebrovascular Accident: Yes (CVA) Diabetes: No Diminished Hearing: No Endocrine: Yes Fibromyalgia: Yes Gastrointestinal Disorders: Yes GERD: Yes Glaucoma: No Genitourinary: Yes (KIDNEY STONES) Headaches: Yes Hepatitis: No Hiatal Hernia: Yes Heparin Induced Thrombocytopen: No Hypertension: No Immune Disorder: Yes Implanted Vascular Access Dvce: Yes (PAIN PUMP) Kidney Stones: Yes Musculoskeletal: Yes (RIGHT HIP BURSITIS) Neurologic: Yes (r facial droop from stroke, r leg numb and weakness, foot drop , ) Psychiatric: Yes Reproductive: Yes Respiratory: Yes Integumentary: No Immunizations Current: Yes Migraines: No Myocardial Infarction: No Radiation Therapy: No Renal Failure: No Seizures: No Sickle Cell Disease: No Sleep Apnea: No Thyroid Disease: Yes (HYPO) Ulcer: No Influenza Vaccination: Yes PNEUMOCCOCAL Vaccine (Year): 1 ?: Not Menopausal: Yes : 3 Para: 3 Tubal Ligation: Yes Past Surgical History Abdominal Surgery: Yes (umbilical hernia repair) AICD: Yes (medtronic (REMOVED)) Appendectomy: No Arteriovenous Shunt: No Body Medical Devices: DILAUDID PAIN PUMP, METAL NECK ,LUMBAR AREAS Cardiac Surgery: Yes (pacemaker) Cholecystectomy: No Ear Surgery: No Endocrine Surgery: Yes (thyroidectomy) Eye Surgery: Yes (Lasik OU) Genitourinary Surgery: No Gynecologic Surgery: Yes Hysterectomy: Yes Insulin Pump: No Joint Replacement: Yes (LEFT KNEE ) Mastectomy: No Neurologic Surgery: Yes (laminectomy 1985, hemorrhagic cyst removal 1995, laminectomy at l4-5) Oral Surgery: No Pacemaker: Yes Thoracic Surgery: Yes Tonsillectomy: Yes Other Surgery: Yes (IMPLANTED PAIN PUMP, FUSIONS IN BACK AND NECK) Social History Alcohol Use: No Tobacco Use: No Substance Use: No Allergies-Medications (Allergen,Severity, Reaction): Coded Allergies: clindamycin (Unverified Allergy, Severe, Anaphylaxis, 04/05/18) penicillin G (Unverified Allergy, Severe, TOUNGE SWELLS, 04/05/18) *MDRO Multi-Drug Resistant Organism (Verified Allergy, Unknown, 04/05/18) 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 doxycycline (Verified Allergy, Unknown, SWELLING, 04/05/18) levofloxacin (Verified Allergy, Unknown, Swelling, 04/05/18) MRI PRECAUTION (Verified Adverse Reaction, Severe, PT DENIES-STATES NEW PACER THAT SHE CAN HAVE MRI WITH, 04/05/18) adhesive (Unverified Adverse Reaction, Intermediate, SKIN TEARS, 04/05/18) monosodium glutamate (Unverified Adverse Reaction, Intermediate, HEADACHES , 04/05/18) Reported Meds & Prescriptions Reported Meds & Active Scripts Active Keflex (Cephalexin) 500 Mg Capsule 500 Mg PO Q6H 7 Days Bactrim DS (Sulfamethoxazole-Trimethoprim) 800-160 Mg Tab 1 Tab PO BID Proventil Hfa 6.7 GM Inh (Albuterol Sulfate) 90 Mcg/Act Aer 2 Puff INH Q4-6H PRN Proair Hfa 8.5 GM Inh (Albuterol Sulfate) 90 Mcg/Act Aer 2 Puff INH Q4-6H PRN 108 mcg/actuation Reported Multiple Vitamin 1 Tab 1 Tab PO DAILY Warfarin 5 Mg Tab 5 Mg PO EVERY OTHER DAY Warfarin 2.5 Mg Tab 2.5 Mg PO EVERY OTHER DAY Hydrocodone-Acetaminophen 10-325 mg Tab 1 Tab PO BID Vitamin B-12 (Cyanocobalamin) 1,000 Mcg Tab 1,000 Mcg PO DAILY Alprazolam 1 Mg Tab 1 Mg PO HS PRN Atorvastatin (Atorvastatin Calcium) 80 Mg Tab 80 Mg PO HS Levothyroxine (Levothyroxine Sodium) 137 Mcg Tab 137 Mcg PO DAILY Sertraline (Sertraline HCl) 100 Mg Tab 100 Mg PO DAILY Review of Systems Except as stated in HPI: all other systems reviewed are Neg General / Constitutional: No: Fever, Chills HENT: No: Rhinorrhea, Congestion Cardiovascular: No: Chest Pain or Discomfort Respiratory: No: Shortness of Breath, Hemoptysis, Pleuritic Pain Gastrointestinal: No: Nausea, Vomiting, Abdominal Pain Genitourinary: No: Dysuria Musculoskeletal: Positive: Pain (right lower medial ankle, distal lower leg) Skin: Positive Rash Neurologic: No: Weakness Psychiatric: No: Anxiety Hematologic/Lymphatic: No: Lymph Node Enlargement Physical Exam Narrative GENERAL: Well-developed well-nourished elderly female no acute distress no respiratory SKIN: Warm and dry. HEAD: Normocephalic. EYES: No scleral icterus. No injection or drainage. NECK: Supple, trachea midline. No JVD or lymphadenopathy. CARDIOVASCULAR: Regular rate and rhythm without murmurs, gallops, or rubs. RESPIRATORY: Breath sounds equal bilaterally. No accessory muscle use. GASTROINTESTINAL: Abdomen soft, non-tender, nondistended. MUSCULOSKELETAL: No cyanosis, or edema. Focal right dorsal medial warmth tenderness and erythema of the distal right lower leg and ankle scant involvement of the dorsum of the right foot. Capillary refill is brisk and less than 2 seconds per digit and dorsalis pedis pulses 2+ to palpation. Patient has no posterior calf cording and Homans sign is negative. Patient has mild erythema to less extent to the medial aspect of the left ankle as well with associated warmth. No posterior calf cording no Homans sign dorsalis pedis pulses 2+ to palpation capillary refill is brisk and less than 2 seconds. Patient demonstrates intact range of motion of the lower extremity and no deformity. BACK: Nontender without obvious deformity. No CVA tenderness. Data Data Last Documented VS Vital Signs Date Time Temp Pulse Resp B/P (MAP) Pulse Ox O2 Delivery O2 Flow Rate FiO2 04/05/18 05:57 60 16 141/67 (91) 95 04/05/18 03:39 Room Air 04/04/18 23:48 98.8 Orders Orders Complete Blood Count With Diff (04/05/18 00:38) Basic Metabolic Panel (Bmp) (04/05/18 00:38) Prothrombin Time / Inr (Pt) (04/05/18 00:38) Uric Acid (04/05/18 00:38) Urinalysis - C+S If Indicated (04/05/18 00:38) Ankle, Complete ([id number]) (04/05/18 ) Sulfamet-Trimeth Ds 800-160 Mg (Bactrim (04/05/18 03:30) Ed Discharge Order (04/05/18 05:42) Warfarin (Coumadin) (04/05/18 05:45) Cephalexin (Keflex) (04/05/18 05:45) Labs Laboratory Tests Test 04/05/18 00:53 04/05/18 01:10 Urine Color YELLOW Urine Turbidity CLEAR Urine pH 5.5 Urine Specific Ajo 1.020 Urine Protein NEG mg/dL Urine Glucose (UA) NEG mg/dL Urine Ketones NEG mg/dL Urine Occult Blood NEG Urine Nitrite NEG Urine Bilirubin NEG Urine Urobilinogen 1.0 MG/DL Urine Leukocyte Esterase TRACE Urine WBC 0-2 /hpf Urine Squamous Epithelial Cells 0-5 /hpf Microscopic Urinalysis Comment CULT NOT INDICATED White Blood Count 4.7 TH/MM3 Red Blood Count 3.73 MIL/MM3 Hemoglobin 10.4 GM/DL Hematocrit 30.0 % Mean Corpuscular Volume 80.6 FL Mean Corpuscular Hemoglobin 27.8 PG Mean Corpuscular Hemoglobin Concent 34.5 % Red Cell Distribution Width 15.0 % Platelet Count 203 TH/MM3 Mean Platelet Volume 8.8 FL Neutrophils (%) (Auto) 45.3 % Lymphocytes (%) (Auto) 37.9 % Monocytes (%) (Auto) 12.1 % Eosinophils (%) (Auto) 3.9 % Basophils (%) (Auto) 0.8 % Neutrophils # (Auto) 2.1 TH/MM3 Lymphocytes # (Auto) 1.8 TH/MM3 Monocytes # (Auto) 0.6 TH/MM3 Eosinophils # (Auto) 0.2 TH/MM3 Basophils # (Auto) 0.0 TH/MM3 CBC Comment DIFF FINAL Differential Comment Prothrombin Time 14.8 SEC Prothromb Time International Ratio 1.5 RATIO Blood Urea Nitrogen 12 MG/DL Creatinine 0.67 MG/DL Random Glucose 92 MG/DL Calcium Level 8.5 MG/DL Uric Acid 2.9 MG/DL Sodium Level 141 MEQ/L Potassium Level 3.8 MEQ/L Chloride Level 108 MEQ/L Carbon Dioxide Level 29.1 MEQ/L Anion Gap 4 MEQ/L Estimat Glomerular Filtration Rate 88 ML/MIN MDM Medical Decision Making Medical Screen Exam Complete: Yes Emergency Medical Condition: Yes Medical Record Reviewed: Yes Interpretation(s) INR: 1.5 Last Impressions Ankle X-Ray 04/05/18 0000 Signed Impressions: Service Date/Time: Thursday, April 05, 2018 00:51 - CONCLUSION: 1. Soft tissue swelling of the right ankle. No acute bony abnormality. Payam Quezada MD CBC & BMP Diagram 04/05/18 01:10 Calcium Level 8.5, Uric Acid 2.9 Vital Signs Date Time Temp Pulse Resp B/P (MAP) Pulse Ox O2 Delivery O2 Flow Rate FiO2 04/05/18 05:57 60 16 141/67 (91) 95 04/05/18 03:39 62 16 136/68 (90) 98 Room Air 04/04/18 23:48 98.8 62 20 143/63 (89) 98 Differential Diagnosis Cellulitis vasculitis Coumadin coagulopathy sprain strain gouty arthritis DVT Narrative Course Specimens collected and sent for resulting imaging studies ordered Right ankle x-ray consistent with soft tissue swelling no bony abnormality Patient with localized area of redness and warmth to the right medial lower leg including ankle and dorsum of foot without Homans sign or ascending edema erythema or swelling; imaging study negative for acute bony abnormality or obvious subcutaneous air or radiopaque foreign body. Exam is consistent with focal cellulitis with mild associated vasculitis. Patient given first dose of antibiotic in the emergency department Patient took warfarin 2.5 mg on Friday and is now on alternating 5 mg daily alternating with 2.5 mg every other day regimen of warfarin. Antibiotic may increase risk for bleeding therefore will continue current regimen but does need to check her level on Friday. Diagnosis Primary Impression: Cellulitis of right lower extremity Referrals: Primary Care Physician 2 days Patient Instructions: General Instructions Additional Instructions: Elevate right lower extremity Complete course of antibiotic as prescribed Take warfarin as prescribed Follow-up with your primary care provider call office in a.m. Return to the emergency department for any concerns or change in condition Take acetaminophen/Tylenol every 4 hours as needed for fever 100.4F or greater Med/Other Pt SpecificInfo: Prescription(s) given Scripts Cephalexin (Keflex) 500 Mg Capsule 500 MG PO Q6H for Infection for 7 Days, #28 CAP 0 Refills Prov: Sandra George MD 04/05/18 Sulfamethoxazole-Trimethoprim (Bactrim DS) 800-160 Mg Tab 1 TAB PO BID for Infection, #14 TAB 0 Refills Prov: Sandra George MD 04/05/18 Disposition: 01 DISCHARGE HOME Condition: Stable Sandra George MD April 05, 2018 03:35
[2018-04-05] MEDS ORDERED: CEPH-460 PO (03:36)
[2018-04-05] MEDS ORDERED: BACT800T5 PO (03:36)
[2018-04-05 03:39] VITALS: BP 136/68; PULSE 62; RESP 16; O2SAT 98
[2018-04-05] MEDS ORDERED: CEPHALEXIN MONOHYDRATE 500 MG CAP PO ONE (05:45)
[2018-04-05] MEDS ORDERED: WARFARIN SOD 2.5 MG TAB PO ONE (05:45)
[2018-04-05 05:57] VITALS: BP 141/67
== END 2018-04-05 05:58 | disposition home or self-care (01) ==
LOC: PHED 23:43
DX: L03.115 Cellulitis of right lower limb (principal); Z79.01 Long term (current) use of anticoagulants; E03.9 Hypothyroidism, unspecified; I25.10 Atherosclerotic heart disease of native coronary artery without angina pectoris; I48.91 Unspecified atrial fibrillation; E78.00 Pure hypercholesterolemia, unspecified; M79.7 Fibromyalgia; K21.9 Gastro-esophageal reflux disease without esophagitis
CPT/HCPCS: 73610; 80048; 81001; 84550; 85025; 85610; 99284